=== PATIENT | male | born 1940 | race Caucasian/White ===

== ENCOUNTER 2016-05-08 11:19 | Inpatient (IN) | payer MEDICARE ==
[~2016-05-08] VITALS: Ht 175.3 cm; Wt 87.2 kg
[~2016-05-08 11:19] MED LIST: CEFU1TAB43 PO; CIAL2.5T OR; DUONI NEB; MEDR4PAK3 PO; SAW500CA6 PO; TAB-TAB PO; ZITH250T PO
[2016-05-08 11:25] VITALS: BP 141/78; PULSE 68; RESP 16; O2SAT 96
[2016-05-08] MEDS ORDERED: ONDANSETRON HCL 4 MG/2 ML VIAL IV PUSH ONE (11:30)
[2016-05-08] MEDS ORDERED: HYDROmorphone HCL PF 1 MG/ML VIAL IV PUSH ONE (11:30)
[2016-05-08 11:38] VITALS: BP 139/95; PULSE 73; RESP 18; TEMP 97.8; O2SAT 98
[2016-05-08 11:56] LABS: AUTOMATED NEUTROPHIL # 5.9 TH/MM3 (1.8-7.7); BASOPHIL % 0.5 % (0.0-2.0); EOSINOPHIL % 0.2 % (0.0-4.0); HEMATOCRIT 48.5 % (39.0-51.0); HEMO FLAGS DIFF FINAL; LYMPH % 15.6 % (9.0-44.0); LYMPHOCYTE # 1.3 TH/MM3 (1.0-4.8); MEAN CELL VOLUME 94.8 FL (80.0-100.0); MEAN CORPUSCULAR HEMOGLOBIN 32.1 PG (27.0-34.0); MEAN CORPUSCULAR HGB CONC 33.9 % (32.0-36.0); MONO % 10.4 % (0.0-8.0); NEUT % 73.3 % (16.0-70.0); PLATELET COUNT 209 TH/MM3 (150-450); RED BLOOD COUNT 5.12 MIL/MM3 (4.50-5.90); RED CELL DISTRIBUTION WIDTH 13.9 % (11.6-17.2); WHITE BLOOD COUNT 8.1 TH/MM3 (4.0-11.0)
[2016-05-08] MEDS ORDERED: PROPOFOL 500 MG/50 ML BTL IV ONE (12:00)
[2016-05-08 12:06] LABS: PROTHROMBIN TIME - PATIENT 11.6 SEC (9.8-11.6)
[2016-05-08 12:07] LABS: APTT (PATIENT) 28.2 SEC (24.3-30.1)
[2016-05-08 12:10] VITALS: O2SAT 99
[2016-05-08 12:24] LABS: BICARBONATE 20.7 MEQ/L (21.0-32.0); MAGNESIUM 1.9 MG/DL (1.5-2.5); POTASSIUM 3.6 MEQ/L (3.5-5.1)
[2016-05-08] MEDS ORDERED: SODIUM CHLORIDE 0.9% FLUSH 5 ML FLUSH FLUSH PRN (14:00)
[2016-05-08] MEDS ORDERED: MORPHINE SULFATE 4 MG/ML INJ IV PUSH PRN (14:00)
[2016-05-08] MEDS ORDERED: HYDROmorphone HCL PF 1 MG/ML VIAL IV PUSH PRN (14:00)
[2016-05-08] MEDS ORDERED: NALOXONE HCL 0.4 MG/ML AMP IV PRN (14:00)
[2016-05-08] MEDS ORDERED: ONDANSETRON HCL 4 MG/2 ML VIAL IVP PRN (14:00)
[2016-05-08] MEDS ORDERED: ACETAMINOPHEN 325 MG TAB PO PRN (14:00)
--- NOTE | 2016-05-08 14:10 | RADRPT ---
EXAM DATE/TIME: 05/08/2016 13:26 [place] COMPARISON: CHEST SINGLE AP, August 14, 2012, 17:37. INDICATIONS : Shortness of breath. Inguinal Hernia. MEDICAL HISTORY : Chronic obstructive pulmonary disease. Carcinoma, lung. 10/2015 Lung CA. SURGICAL HISTORY : None. ENCOUNTER: Initial ACUITY: 1 day PAIN SCORE: 0/10 LOCATION: Bilateral chest . FINDINGS: There is a somewhat ill-defined horizontal left basilar 1-1/2 cm elongated linear area of density whi ch has occurred in the interim. There is a history of lung cancer with no interim imaging. This may r epresent scarring. Correlation with prior chest and/or CT scans in the interim relative to August 2012 w ould resolve this issue. CONCLUSION: Horizontal ill-defined 1-1/2 cm area of linear density in the left lung base indeterminate chronicity . Phu Velasquez MD on May 08, 2016 at 14:06 Board Certified Radiologist. This report was verified electronically.
--- NOTE | 2016-05-08 14:17 | PD ---
HPI Chief Complaint: Lump, Cyst, Hernia Time Seen by Provider: 11:32 Travel History International Travel<30 days: No Contact w/Intl Traveler<30days: No Traveled to known affect area: No History of Present Illness HPI 76-year-old male presents with right lower quadrant abdominal pain associated with a hernia which will not reduce since this morning. He was sent by ambulance from his surgeons office for incarceration. The patient states he had an episode in March when he had to go to [place] for them to reduce it but today's was worse. He denies other concurrent complaints. Quality pain is sharp. Severity is moderate. Pain is worse with movement. Dr. Weeks is who he saw in the office and he has not had surgery there yet. His is at bedside. PFSH Past Medical History AAA: Yes (STENT REPAIR) Cancer: No Cardiovascular Problems: No COPD: Yes (uses oxygen at night) Diminished Hearing: Yes Endocrine: No Genitourinary: No Immune Disorder: No Implanted Vascular Access Dvce: Yes Musculoskeletal: No Neurologic: Yes Psychiatric: No Reproductive: No Respiratory: Yes Pneumonia: Yes Past Surgical History Abdominal Aneurysm Repair: Yes (STENT) Abdominal Surgery: Yes (BOWEL REPAIR) Eye Surgery: Yes (SAVANAH. CATARACT EXTRACT.) Other Surgery: Yes Social History Alcohol Use: Yes Tobacco Use: No (QUIT 6 MONTHS PRIOR) Substance Use: No Allergies-Medications (Allergen,Severity, Reaction): Coded Allergies: No Known Allergies (Unverified , 08/14/12) Reported Meds & Prescriptions Reported Meds & Active Scripts Active Zithromax Z-Oscar (Azithromycin) 250 Mg Tab 250 Mg PO DIRECTED 500 MG (2 TABLETS) PO ON DAY 1, THEN 250 MG (1 TABLET) PO ON DAYS 2 TO 5. Ceftin 500 Mg Tab (Cefuroxime Axetil) 500 Mg Tab 500 Mg PO BID Medrol Dosepak (Methylprednisolone) 4 Mg Oscar 4 Mg PO DIRECTED TAKE DIRECTED Resp: Albuterol/Ipratropium 2.5 Mg/0.5 Mg (Albuterol/Ipratropium) 1 Amp Nebu 1 Amp NEB Q6H 10 Days Reported Cialis (Tadalafil) 2.5 Mg Tab 0 OR Saw [place] 500 Mg Cap 500 Mg PO BID Multivitamin (Multivitamins) 1 Tab Tab 1 Tab PO DAILY Review of Systems Except as stated in HPI: all other systems reviewed are Neg Physical Exam Narrative GENERAL: Well-nourished, well-developed patient. SKIN: Warm and dry. HEAD: Normocephalic and atraumatic. EYES: No injection or drainage. ENT: No nasal drainage noted. NECK: Supple, trachea midline. CARDIOVASCULAR: Regular rate and rhythm RESPIRATORY: No increased effort. No accessory muscle use. GASTROINTESTINAL: Abdomen soft, tender right lower abdomen with incarcerated right inguinal hernia with significant swelling and purple discoloration noted, nondistended. NEUROLOGICAL: Awake and alert. Moves all extremities. Normal speech. Data Data Last Documented VS Vital Signs Date Time Temp Pulse Resp B/P Pulse Ox O2 Delivery O2 Flow Rate FiO2 05/08/16 12:10 99 05/08/16 11:38 97.8 73 18 139/95 Room Air Orders Electrocardiogram (05/08/16 11:30) Complete Blood Count With Diff (05/08/16 11:30) Basic Metabolic Panel (Bmp) (05/08/16 11:30) Prothrombin Time / Inr (Pt) (05/08/16 11:30) Act Partial Throm Time (Ptt) (05/08/16 11:30) Urinalysis - C+S If Indicated (05/08/16 11:30) Magnesium (Mg) (05/08/16 11:30) Chest, Single Ap (05/08/16 11:30) Iv Access Insert/Monitor (05/08/16 11:30) Ecg Monitoring (05/08/16 11:30) Oximetry (05/08/16 11:30) Hydromorphone Pf Inj (Dilaudid Pf Inj) (05/08/16 11:30) Ondansetron Inj (Zofran Inj) (05/08/16 11:30) Propofol 500 Mg/50 Ml Inj (Diprivan 500 (05/08/16 12:00) Admit Order (Ed Use Only) (05/08/16 12:33) Labs Laboratory Tests Test 05/08/16 11:40 White Blood Count 8.1 TH/MM3 Red Blood Count 5.12 MIL/MM3 Hemoglobin 16.4 GM/DL Hematocrit 48.5 % Mean Corpuscular Volume 94.8 FL Mean Corpuscular Hemoglobin 32.1 PG Mean Corpuscular Hemoglobin 33.9 % Concent Red Cell Distribution Width 13.9 % Platelet Count 209 TH/MM3 Mean Platelet Volume 8.1 FL Neutrophils (%) (Auto) 73.3 % Lymphocytes (%) (Auto) 15.6 % Monocytes (%) (Auto) 10.4 % Eosinophils (%) (Auto) 0.2 % Basophils (%) (Auto) 0.5 % Neutrophils # (Auto) 5.9 TH/MM3 Lymphocytes # (Auto) 1.3 TH/MM3 Monocytes # (Auto) 0.8 TH/MM3 Eosinophils # (Auto) 0.0 TH/MM3 Basophils # (Auto) 0.0 TH/MM3 CBC Comment DIFF FINAL Differential Comment Prothrombin Time 11.6 SEC Prothromb Time International 1.0 RATIO Ratio Activated Partial 28.2 SEC Thromboplast Time Sodium Level 139 MEQ/L Potassium Level 3.6 MEQ/L Chloride Level 103 MEQ/L Carbon Dioxide Level 20.7 MEQ/L Anion Gap 15 MEQ/L Blood Urea Nitrogen 9 MG/DL Creatinine 0.98 MG/DL Estimat Glomerular Filtration 74 ML/MIN Rate Random Glucose 159 MG/DL Calcium Level 9.4 MG/DL Magnesium Level 1.9 MG/DL MDM Medical Decision Making Medical Screen Exam Complete: Yes Emergency Medical Condition: Yes Medical Record Reviewed: Yes (past history confirmed) Interpretation(s) CBC & BMP Diagram 05/08/16 11:40 Differential Diagnosis Hernia, obstruction, mass Narrative Course Patient arrived with incarcerated hernia. Gave order for morphine in route with the ambulance team. When he arrived here he was given Dilaudid. Surgeon was notified of arrival and arrived at bedside and procedural sedation was agreed upon and patient consented with time out. Sedation was achieved with propofol. Patient will be admitted to the hospital for surgical repair after successful reduction in the emergency department. He will need surgical clearance before surgery. Procedures Procedure Narrative After the risks and benefits were discussed the following procedure was performed: MODERATE SEDATION: The patient was placed on a clinical research monitor and pulse oximetry. An ambu bag and suction was immediately available at bedside. The patient was monitored by the nurse and respiratory therapy. Oxygen saturation, heart rate and blood pressure were monitored. Procedural sedation was acheived using 12 mL's of propofol. Procedural Sedation time in attendance was 15 minutes as patient had brief desaturation after procedure was complete where I personally performed bag valve mask to keep his saturations adequate. The patient was observed until awake and alert. updated at end of procedure, patient felt improved after procedure Physician Communication Physician Communication Dr. Weeks will come to bedside Dr. Weeks states after reduction to consult him and he already discussed with Dr. Daugherty for admission, he will need cardiac and surgical clearance before surgery in the hospital Diagnosis Primary Impression: Incarcerated hernia Admitting Information Admitting Physician Requests: Admit Tram Oliva MD May 08, 2016 14:17
[2016-05-08] MEDS: SODIUM CHLOR 0.45% 1000 ML INJ 1,000 ML IV SCH (14:49)
[2016-05-08 15:01] VITALS: O2SAT 93
[2016-05-08 17:22] LABS: BLOOD, URINE NEG (NEG); COMMENT (UR) CULT NOT INDICATED; CULTURE IF INDICATED CULT NOT INDICATED; GLUCOSE,URINE NEG (NEG); KETONE, URINE 10 mg/dL (NEG); MUCUS URINE FEW /lpf (OCC); NITRITE,URINE NEG (NEG); PH, URINE 5.5 (5.0-8.5); URINE COLOR YELLOW (YELLW/STRAW)
--- NOTE | 2016-05-08 18:14 | HHI.HP ---
[facility] Primary Care Physician Cat Ferguson MD Admission Diagnosis hernia Diagnoses: Chief Complaint: Right lower quadrant abdominal- incarcerated hernia Travel History International Travel<30 Days: No Contact w/Intl Traveler <30 Da: No Traveled to Known Affected Are: No History of Present Illness This very pleasant 76-year-old male patient with past medical history which includes AAA status post repair, COPD worse 2 L nasal oxygen via nasal cannula at night, lung cancer status post robotic resection hard of hearing and macular degeneration. Patient reports that he's had a right inguinal hernia for about the past year. Patient did go to the emergency department physician while 04/06 which he required conscious sedation and reduction of hernia. Patient reports he woke up this morning with severe sharp right lower quadrant pain. Pain is associated with nausea. Patient reports he is occasionally able to reduce the hernia himself but was unable to therefore proceeded to his scheduled appointment with Dr. Fernandes at that time he was instructed to come to the emergency department for further evaluation and treatment. On arrival to the emergency department patient was found to have incarcerated right hernia which was partially reduced with conscious sedation by Dr. Weeks. Patient reports the pain has normal way and he feels much better at this time. Dr. Weeks plans to take patient to the operating room for hernia repair first with like cardiac and medical clearance preoperative clearance. Patient denies chest pain shortness of breath fevers or chills. Patient does report he has had intermittent difficulties with constipation for which she's been taking [id number] stool softeners. Review of Systems Other All other systems reviewed and negative except as mentioned in history of present illness. Past Family Social History Past Medical History AAA status post repair, COPD worse 2 L nasal oxygen via nasal cannula at night, lung cancer status post robotic resection hard of hearing and macular degeneration Past Surgical History AAA repair with stent, abdominal hernia repair, bilateral cataract surgery, robotic lung cancer resection left side Reported Medications Cialis (Tadalafil) 2.5 Mg Tab Saw [place] 500 Mg Cap 500 Mg PO BID Multivitamin (Multivitamins) 1 Tab Tab 1 Tab PO DAILY Allergies: Coded Allergies: No Known Allergies (Unverified , 08/14/12) Active Ordered Medications Current Medications Medications (Trade) Dose Ordered Sig/Daniel Route Start Time Stop Time Status Last Admin (04/15 NS 1000 ml Inj) 1,000 ml @ 75 mls/hr [id number] IV 05/08/16 13:53 05/08/16 14:49 (NS Flush) 2 ml UNSCH PRN FLUSH 05/08/16 14:00 (NS Flush) 2 ml BID FLUSH 05/08/16 21:00 (Tylenol) 650 mg Q4H PRN PO 05/08/16 14:00 (Zofran Inj) 4 mg Q6H PRN IVP 05/08/16 14:00 (Narcan Inj) 0.4 mg UNSCH PRN IV 05/08/16 14:00 (Morphine Inj) 2 mg Q3H PRN IV PUSH 05/08/16 14:00 (Dilaudid Pf Inj) 1 mg Q4H PRN IV PUSH 05/08/16 14:00 Family History Father secondary to NM also had prostate cancer Mother also had diabetes heart disease and CVA Social History Patient reports he drinks proximally 2 alcoholic drinks per day Quit smoking 10-12 years ago prior to that had a [id number] history 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 SKIN: No rashes, ecchymoses or lesions. Cool and dry. HEAD: Atraumatic. Normocephalic. No temporal or scalp tenderness. EYES: Extraocular motions intact. No scleral icterus. No injection or drainage. ENT: Nose without bleeding, purulent drainage or septal hematoma. Throat without erythema, tonsillar hypertrophy or exudate. Uvula midline. Airway patent. NECK: Trachea midline. No JVD or lymphadenopathy. Supple, nontender, no meningeal signs. CARDIOVASCULAR: Regular rate and rhythm without murmurs, gallops, or rubs. RESPIRATORY: Clear to auscultation. Breath sounds equal bilaterally. No wheezes , rales, or rhonchi. GASTROINTESTINAL: Abdomen soft, non-tender, nondistended. Right inguinal hernia partially reduced soft MUSCULOSKELETAL: Extremities without clubbing, cyanosis, or edema. No joint tenderness, effusion, or edema noted. No calf tenderness. Negative Homans sign bilaterally. NEUROLOGICAL: Awake and alert. No focal deficits appreciated Motor and sensory grossly within normal limits. Five out of 5 muscle strength in all muscle groups. Normal speech. Laboratory Laboratory Tests Test 05/08/16 05/08/16 11:40 16:35 White Blood Count 8.1 Red Blood Count 5.12 Hemoglobin 16.4 Hematocrit 48.5 Mean Corpuscular Volume 94.8 Mean Corpuscular Hemoglobin 32.1 Mean Corpuscular Hemoglobin 33.9 Concent Red Cell Distribution Width 13.9 Platelet Count 209 Mean Platelet Volume 8.1 Neutrophils (%) (Auto) 73.3 Lymphocytes (%) (Auto) 15.6 Monocytes (%) (Auto) 10.4 Eosinophils (%) (Auto) 0.2 Basophils (%) (Auto) 0.5 Neutrophils # (Auto) 5.9 Lymphocytes # (Auto) 1.3 Monocytes # (Auto) 0.8 Eosinophils # (Auto) 0.0 Basophils # (Auto) 0.0 CBC Comment DIFF FINAL Differential Comment Prothrombin Time 11.6 Prothromb Time International 1.0 Ratio Activated Partial 28.2 Thromboplast Time Sodium Level 139 Potassium Level 3.6 Chloride Level 103 Carbon Dioxide Level 20.7 Anion Gap 15 Blood Urea Nitrogen 9 Creatinine 0.98 Estimat Glomerular Filtration 74 Rate Random Glucose 159 Calcium Level 9.4 Magnesium Level 1.9 Urine Color YELLOW Urine Turbidity CLEAR Urine pH 5.5 Urine Specific [place] 1.016 Urine Protein NEG Urine Glucose (UA) NEG Urine Ketones 10 Urine Occult Blood NEG Urine Nitrite NEG Urine Bilirubin NEG Urine Urobilinogen LESS THAN 2.0 Urine Leukocyte Esterase NEG Urine WBC 3 Urine Mucus FEW Microscopic Urinalysis Comment CULT NOT INDICATED Result Diagram: 05/08/16 1140 05/08/16 1140 Imaging Last Impressions Chest X-Ray 05/08/16 1130 Signed Impressions: Service Date/Time: Sunday, May 08, 2016 13:26 - CONCLUSION: Horizontal ill-defined 1-1/2 cm area of linear density in the left lung base indeterminate chronicity. Phu Velasquez MD Assessment and Plan Assessment and Plan This very pleasant 76-year-old male patient with past medical history which includes AAA status post repair, COPD worse 2 L nasal oxygen via nasal cannula at night, lung cancer status post robotic resection hard of hearing and macular degeneration. Patient reports that he's had a right inguinal hernia for about the past year. On arrival to the emergency department patient was found to have incarcerated right hernia which was partially reduced with conscious sedation by Dr. Weeks. Dr. Weeks plans to take patient to the operating room for hernia repair first with like cardiac and medical clearance preoperative clearance. Incarcerated hernia Right lower quadrant abdominal pain Hernia reduced with conscious sedation by Dr. Weeks Plans per General surgery regarding timing of repair. Dr. Weeks requesting cardiac and medical clearance preoperatively Cardiology consulted for preoperative clearance Patient nothing by mouth at this time Normal saline at 75 cc/h COPD oxygen via nasal cannula to maintain oxygen saturation above 90% Duo nebs as needed Lung cancer status post resection follow-up with Dr. Pradhan as outpatient DVT prophylaxis with SCDs Discussed plan of care with patient and family member at bedside Also discussed with the ER provider and RN Written by Regina Kimbrough, acting as scribe for Dr. Daugherty on 05/08/16 at 18:14. The documentation accurately reflects the work performed [id number] by me on 05/08/16 at 1814. Discussed Condition With Dr. Oliva and Dr. Weeks Physician Certification 2 Midnight Certification Type: Admission for Inpatient Services Order for Inpatient Services The services are ordered in accordance with Medicare regulations or non- Medicare payer requirements, as applicable. In the case of services not specified as inpatient-only, they are appropriately provided as inpatient services in accordance with the 2-midnight benchmark. Estimated LOS (days): 3 days is the estimated time the patient will need to remain in the hospital, assuming treatment plan goals are met and no additional complications. Post-Hospital Plan: Home Regina Kimbrough May 08, 2016 18:14 Chad Daugherty MD May 08, 2016 21:38
[2016-05-08] MEDS ORDERED: RESP: ALBUTEROL 2.5 MG/IPRATROPIUM 0.5 MG NEB (PRN) NEB (18:15)
--- NOTE | 2016-05-08 19:23 | MB ---
cc: FIOR VALERIO MD DATE OF CONSULTATION 05/08/2016 REASON FOR CONSULTATION Incarcerated right inguinal hernia. HISTORY OF PRESENT ILLNESS The patient is a 76-year-old male with of multiple medical issues who presented initially in the vascular surgery office for evaluation of triple aortic aneurysm which had previously been repaired. The patient was undergoing a routine visit with notes of findings of a right inguinal hernia incarceration. The patient had significant nausea and vomiting that started in the morning. He also complained of significant pain. This was discussed with surgery in the office and given the patient's acute symptoms and concern for irreducible inguinal hernia he was sent to the emergency department for further evaluation. On my evaluation in the emergency department again the patient noted that he had history of a hernia since approximately 2014 and he states that it intermittently protrudes and spontaneously reduces. He has had several episodes in the past for which he has had an incarcerated hernia for which reduction was not possible at home, therefore most recently he came to the emergency department in March due to incarcerated hernia where he underwent reduction by the physician and told to followup. The patient complains of recurrent symptoms including nausea, vomiting and groin pain. He states the pain is a 10/10, it radiates to the right side of his abdomen and down to the groin. It is sharp. Again he has had pain like this previously multiple times and is not improved. It is worse with movement and better with lying still. Although the patient states he cannot lie flat. PAST MEDICAL HISTORY 1. COPD. 2. Aortic aneurysm. 3. Hearing impairment. 4. Pneumonia. PAST SURGICAL HISTORY 1. Triple abdominal aortic aneurysm repair with a graft endovascularly. 2. Bowel repair. 3. Bilateral cataract surgery. SOCIAL HISTORY occasional ethyl alcohol. Denies current smoking, however does have a history of smoking in the past. Denies IVDA. ALLERGIES The patient has no known drug allergies. MEDICATIONS See EMR. FAMILY HISTORY Denies diabetes, hypertension. REVIEW OF SYSTEMS GENERAL: The patient complained of significant groin pain. HEENT: Denies eye pain, ear pain. Does complain of decreased visual acuity. NECK: Denies adenopathy, swelling. RESPIRATORY: Denies cough. Does have COPD. CARDIOVASCULAR: Denies palpitations or chest pain. ABDOMEN: Complained of abdominal pain, groin pain. ENDOCRINE: Denies polyuria, polydipsia. NEUROLOGICAL: Complained of some numbness. Denies change in sensorium. GENITOURINARY: Complained of groin pain. Denies dysuria. PHYSICAL EXAMINATION GENERAL: The patient no acute distress. HEENT: PERRLA, EOMI. NECK: Supple. Trachea midline. CARDIOVASCULAR: Heart S1-S2. No murmur. LUNGS: Bilateral expansion, no wheeze. ABDOMEN: Soft, nontender, nondistended. Right groin mass noted. Positive tenderness to palpation, irreducible on plain Physical examination. NEUROLOGICAL: GCS of 15. Alert and oriented times four. GENITOURINARY: Within normal limits with exception of right groin hernia. PSYCHIATRIC: Good insight, good judgment. VITAL SIGNS: Pulse 73, respiratory rate 18, blood pressure 139/95. Pulse oximetry 99%. LABORATORY DATA CBC, white blood cell 8.1, hemoglobin 16.4, hematocrit 48.5, platelets 209. PT 11.6. INR 1.0. Sodium 139, potassium 3.6, chloride 103, CO2 is 20, creatinine is 0.98. Glucose 159. ASSESSMENT Procedure, the patient underwent conscious sedation with manual reduction of hernia. PLAN After full clinical and radiologic workup the patient with incarcerated abdominal groin hernia. Given the fact that patient has had multiple recurrences, the patient _lives_ with a significant distance from the hospital, the patient has had somewhat poor compliance. The patient is with concern of recurrence of hernia. Further concern that the patient had incarcerated small bowel within the hernia and significant tenderness given this fact of duration of hernia protrusion, the patient will warrant admission for abdominal exams and repeat labs in the morning. If the patient's labs are increased significantly or concern, he may warrant a CT scan or diagnostic laparoscopy for further evaluation. Further during conscious sedation procedure the patient with a history of chronic obstructive pulmonary disease and did have some desaturations during this time. Further I think it would be prudent for observation and further pulmonary and cardiac workup. We will consider possibly repair of hernia ending further workup and evaluation. This was discussed in detail with the patient and the at the bedside and the nursing staff. They state understanding of this. Thank you for the consultation. MD MANPREET King/DIONICIO /5:04 PM /6:40 PM [id number]
[2016-05-08 20:31] VITALS: BP 110/70; PULSE 70; RESP 18; TEMP 98.4; O2SAT 98
[2016-05-08] MEDS: SODIUM CHLORIDE 0.9% FLUSH 5 ML FLUSH FLUSH SCH (20:35)
[2016-05-09] VITALS (8 sets, daily range): BP systolic 98–114; BP diastolic 66–78; PULSE 69–81; RESP 18; TEMP 96.6–98.4; O2SAT 91–98
[2016-05-09] MEDS: SODIUM CHLOR 0.45% 1000 ML INJ 1,000 ML IV SCH (03:13)
[2016-05-09 07:41] LABS: AUTOMATED NEUTROPHIL # 4.3 TH/MM3 (1.8-7.7); BASOPHIL % 0.3 % (0.0-2.0); EOSINOPHIL # 0.2 TH/MM3 (0-0.4); EOSINOPHIL % 2.6 % (0.0-4.0); HEMATOCRIT 42.7 % (39.0-51.0); HEMO FLAGS DIFF FINAL; LYMPH % 26.5 % (9.0-44.0); MEAN CELL VOLUME 95.6 FL (80.0-100.0); MEAN CORPUSCULAR HEMOGLOBIN 31.8 PG (27.0-34.0); MEAN CORPUSCULAR HGB CONC 33.3 % (32.0-36.0); MONO % 12.9 % (0.0-8.0); NEUT % 57.7 % (16.0-70.0); PLATELET COUNT 162 TH/MM3 (150-450); RED BLOOD COUNT 4.47 MIL/MM3 (4.50-5.90); RED CELL DISTRIBUTION WIDTH 14.5 % (11.6-17.2); WHITE BLOOD COUNT 7.5 TH/MM3 (4.0-11.0)
[2016-05-09 08:14] LABS: BICARBONATE 27.6 MEQ/L (21.0-32.0); POTASSIUM 3.5 MEQ/L (3.5-5.1)
[2016-05-09] MEDS: SODIUM CHLORIDE 0.9% FLUSH 5 ML FLUSH FLUSH SCH (08:35)
--- NOTE | 2016-05-09 11:07 | PD.CONS ---
HPI Service Cardiology Physicians Consult Requested By LUIS ALBERTO Kimbrough Reason for Consult Preoperative clearance Primary Care Physician Cat Ferguson MD History of Present Illness The patient is a 76 year old male with a cardiac history of AAA repair followed by Dr. Fernandes, abnormal EKG with unremarkable cardiac stress test 2014 and history tobacco abuse. Other notable history is O2 dependent COPD and history of lung resection for lung cancer. He presented to the ER for non-reducible hernia. Hernia was reduced with conscious sedation and he is pending surgery. The patient denies new cardiac symptoms. He denies recent CP, increased SOB, lower extremity edema or heart palpitations. He quit smoking 10 year ago. He can climb one flight of stairs. (Sandrine Mcdonald) Review of Systems Consitutional: DENIES: Fatigue, Fever, Chills, Weight gain, Weight loss Eyes: DENIES: Amaurosis Fugax, Change in vision HEENT: DENIES: Lightheadedness, Change in hearing Respiratory: COMPLAINS OF: Shortness of breath, DENIES: See HPI, Cough, Snoring, Wheezing, Sputum production Cardiovascular: DENIES: See HPI, Chest pain, Palpitations, Syncope, Tachycardia Gastrointestinal: DENIES: Nausea, Vomiting, Change in bowel habits, Reflux, Bloody stools, Melena Genitourinary: DENIES: Urinary incontinence, Difficulty voiding Integumentary: DENIES: Rash Neurologic: DENIES: Tingling or numbness, Memory problems, Poor Balance, Stroke symptoms Musculoskeletal: DENIES: Joint pain, Muscle pain, Limited range of motion, Back pain Psychiatric: DENIES: Anxiety, Depression, Sleep disturbances Hematologic: DENIES: Bruising tendencies, Bleeding tendencies Endocrine: DENIES: Weight gain, Weight loss, Thyroid disease (Sandrine Mcdonald ) Past Family Social History Allergies: Coded Allergies: No Known Allergies (Unverified , 08/14/12) Past Medical History See HPI Past Surgical History Lung resection AAA repair Reported Medications Reviewed Active Ordered Medications Current Medications Medications (Trade) Dose Ordered Sig/Daniel Route Start Time Stop Time Status Last Admin (04/15 NS 1000 ml Inj) 1,000 ml @ 75 mls/hr [id number] IV 05/08/16 13:53 05/09/16 03:13 (NS Flush) 2 ml UNSCH PRN FLUSH 05/08/16 14:00 (NS Flush) 2 ml BID FLUSH 05/08/16 21:00 (Tylenol) 650 mg Q4H PRN PO 05/08/16 14:00 (Zofran Inj) 4 mg Q6H PRN IVP 05/08/16 14:00 (Narcan Inj) 0.4 mg UNSCH PRN IV 05/08/16 14:00 (Morphine Inj) 2 mg Q3H PRN IV PUSH 05/08/16 14:00 (Dilaudid Pf Inj) 1 mg Q4H PRN IV PUSH 05/08/16 14:00 Family History non contributory Social History lives with his , quit smoking 10 year ago (Sandrine Mcdonald) Physical Exam Vital Signs Vital Signs Date Time Temp Pulse Resp B/P Pulse Ox O2 Delivery O2 Flow Rate FiO2 05/09/16 10:37 69 05/09/16 08:00 97.0 75 18 104/67 94 05/09/16 04:36 98.1 72 18 114/66 98 05/09/16 03:50 79 05/09/16 00:26 98.4 78 18 98/67 96 05/08/16 20:31 98.4 70 18 110/70 98 05/08/16 15:01 93 Nasal Cannula 2 05/08/16 15:01 93 Nasal Cannula 2.00 05/08/16 12:10 99 05/08/16 11:38 97.8 73 18 139/95 98 Room Air 05/08/16 11:25 68 16 141/78 96 Physical Exam GENERAL: laying flat in bed, no distress SKIN: Warm and dry. HEAD: Atraumatic. Normocephalic. EYES: Pupils equal and round. No scleral icterus. No injection or drainage. ENT: No nasal bleeding or discharge. Mucous membranes pink and moist. NECK: Trachea midline. CARDIOVASCULAR: Regular rate and rhythm. RESPIRATORY: No accessory muscle use. Clear to auscultation. Breath sounds equal bilaterally. nasal cannula, bilateral fine rales GASTROINTESTINAL: Hernia MUSCULOSKELETAL: Extremities without clubbing, cyanosis, or edema. No obvious deformities. NEUROLOGICAL: Awake and alert. No obvious cranial nerve deficits. Motor grossly within normal limits. Five out of 5 muscle strength in the arms and legs. Normal speech. PSYCHIATRIC: Appropriate mood and affect; insight and judgment normal. Laboratory Laboratory Tests Test 05/08/16 05/08/16 05/09/16 11:40 16:35 06:59 White Blood Count 8.1 7.5 Red Blood Count 5.12 4.47 Hemoglobin 16.4 14.2 Hematocrit 48.5 42.7 Mean Corpuscular Volume 94.8 95.6 Mean Corpuscular Hemoglobin 32.1 31.8 Mean Corpuscular Hemoglobin 33.9 33.3 Concent Red Cell Distribution Width 13.9 14.5 Platelet Count 209 162 Mean Platelet Volume 8.1 7.9 Neutrophils (%) (Auto) 73.3 57.7 Lymphocytes (%) (Auto) 15.6 26.5 Monocytes (%) (Auto) 10.4 12.9 Eosinophils (%) (Auto) 0.2 2.6 Basophils (%) (Auto) 0.5 0.3 Neutrophils # (Auto) 5.9 4.3 Lymphocytes # (Auto) 1.3 2.0 Monocytes # (Auto) 0.8 1.0 Eosinophils # (Auto) 0.0 0.2 Basophils # (Auto) 0.0 0.0 CBC Comment DIFF FINAL DIFF FINAL Differential Comment Prothrombin Time 11.6 Prothromb Time International 1.0 Ratio Activated Partial 28.2 Thromboplast Time Sodium Level 139 142 Potassium Level 3.6 3.5 Chloride Level 103 107 Carbon Dioxide Level 20.7 27.6 Anion Gap 15 7 Blood Urea Nitrogen 9 8 Creatinine 0.98 0.90 Estimat Glomerular Filtration 74 82 Rate Random Glucose 159 97 Calcium Level 9.4 8.2 Magnesium Level 1.9 Urine Color YELLOW Urine Turbidity CLEAR Urine pH 5.5 Urine Specific [place] 1.016 Urine Protein NEG Urine Glucose (UA) NEG Urine Ketones 10 Urine Occult Blood NEG Urine Nitrite NEG Urine Bilirubin NEG Urine Urobilinogen LESS THAN 2.0 Urine Leukocyte Esterase NEG Urine WBC 3 Urine Mucus FEW Microscopic Urinalysis Comment CULT NOT INDICATED (Sandrine Mcdonald) Result Diagram: 05/09/16 0659 05/09/16 0659 Imaging Last 72 hours Impressions Chest X-Ray 05/08/16 1130 Signed Impressions: Service Date/Time: Sunday, May 08, 2016 13:26 - CONCLUSION: Horizontal ill-defined 1-1/2 cm area of linear density in the left lung base indeterminate chronicity. Phu Velasquez MD (Sandrine Mcdonald) Assessment and Plan Assessment and Plan ASSESSMENT Incarcerated hernia- pending surgery AAA s/p repair Abnormal EKG- negative nuclear stress test 09/2014 Former smoker Hx lung resection Abnormal CXR PLAN The patient is clear for hernia repair from a cardiac standpoint at intermediate risk. We will follow up after surgery Patient seen and evaluated by Dr Bermudez (Sandrine Mcdonald) Assessment and Plan The exam, history, and the medical decision-making described in the above note were completed with the assistance of the mid-level provider. I reviewed and agree with the findings presented. I attest that I had a [id number] encounter with the patient on the same day, and personally performed and documented my assessment and findings in the medical record. Stable cardiac status no cp or sob doing well post hernia repair ok to d/c (Shaquille Bermudez MD) Sadnrine Mcdonald May 09, 2016 11:06 Shaquille Bermudez MD May 10, 2016 15:03
[2016-05-09] MEDS ORDERED: ePHEDrine/NS 25 MG/5 ML SYR IV ONE (12:00)
[2016-05-09] MEDS ORDERED: ONDANSETRON HCL 4 MG/2 ML VIAL IV PUSH ONE (12:00)
[2016-05-09] MEDS ORDERED: NEOSTIGMINE 3 MG/3 ML SYR IV ONE (12:00)
[2016-05-09] MEDS ORDERED: ceFAZolin 2 GM/50 ML BAG IV ONE (12:00)
[2016-05-09] MEDS ORDERED: PHENYLEPH/NS 1000 MCG/10 ML SYR IV ONE (12:00)
[2016-05-09] MEDS ORDERED: PROPOFOL 200 MG/20 ML AMP IV ONE (12:00)
--- NOTE | 2016-05-09 14:03 | HHI.PR ---
Subjective Subjective Notes DAILY PROGRESS NOTE FOR SURGICAL ATTENDING, DR. DWAIN NORTH Patient feels a lot better after his hernia was reduced Asking about when his hernias had to be repaired with his in the room Cardiology has cleared the patient Objective Vitals/I&O Vital Signs Date Time Temp Pulse Resp B/P Pulse Ox O2 Delivery O2 Flow Rate FiO2 05/09/16 12:00 97.5 80 18 109/73 93 05/08/16 15:01 Nasal Cannula 2 Labs Laboratory Tests Test 05/08/16 05/09/16 16:35 06:59 Urine Color YELLOW Urine Turbidity CLEAR Urine pH 5.5 Urine Specific [place] 1.016 Urine Protein NEG Urine Glucose (UA) NEG Urine Ketones 10 Urine Occult Blood NEG Urine Nitrite NEG Urine Bilirubin NEG Urine Urobilinogen LESS THAN 2.0 Urine Leukocyte Esterase NEG Urine WBC 3 Urine Mucus FEW Microscopic Urinalysis Comment CULT NOT INDICATED White Blood Count 7.5 Red Blood Count 4.47 Hemoglobin 14.2 Hematocrit 42.7 Mean Corpuscular Volume 95.6 Mean Corpuscular Hemoglobin 31.8 Mean Corpuscular Hemoglobin 33.3 Concent Red Cell Distribution Width 14.5 Platelet Count 162 Mean Platelet Volume 7.9 Neutrophils (%) (Auto) 57.7 Lymphocytes (%) (Auto) 26.5 Monocytes (%) (Auto) 12.9 Eosinophils (%) (Auto) 2.6 Basophils (%) (Auto) 0.3 Neutrophils # (Auto) 4.3 Lymphocytes # (Auto) 2.0 Monocytes # (Auto) 1.0 Eosinophils # (Auto) 0.2 Basophils # (Auto) 0.0 CBC Comment DIFF FINAL Differential Comment Sodium Level 142 Potassium Level 3.5 Chloride Level 107 Carbon Dioxide Level 27.6 Anion Gap 7 Blood Urea Nitrogen 8 Creatinine 0.90 Estimat Glomerular Filtration 82 Rate Random Glucose 97 Calcium Level 8.2 Radiology Last Impressions Chest X-Ray 05/08/16 1130 Signed Impressions: Service Date/Time: Sunday, May 08, 2016 13:26 - CONCLUSION: Horizontal ill-defined 1-1/2 cm area of linear density in the left lung base indeterminate chronicity. Phu Vleasquez MD Cardiovascular: Regular Lungs: Clear, Upper airway course sound Abdomen: Non-distended, Non-tender Extremities: No edema Narrative Exam Right inguinal hernia reducible moderate size A/P Problem List: (1) Incarcerated hernia Assessment and Plan 76 her old gentleman with a previously incarcerated right inguinal hernia that was reduced cardiology has cleared him for surgical intervention He's been nothing by mouth since last night I've called the OR and we are adding him on the schedule later on this afternoon for repair of right inguinal hernia Discussed in detail with the patient and the about surgical intervention they appeared to understand Dwain North MD May 09, 2016 14:02
[2016-05-09] MEDS ORDERED: SODIUM BICARBONATE 8.4% INJ 50 ML ONE (16:03)
[2016-05-09] MEDS ORDERED: BUPIVACAINE/EPINEPHRINE 0.5% 50 ML VIAL ONE (16:03)
[2016-05-09] MEDS ORDERED: BUPIVACAINE/EPINEPHRINE 0.25% PF 10 ML VIAL ONE (16:05)
[2016-05-09] MEDS ORDERED: ACETAMINOPHEN 1000 MG/100 ML VIAL IV ONE (16:20)
[2016-05-09] MEDS ORDERED: HYDROmorphone HCL PF 2 MG/ML VIAL ONE (16:20)
--- NOTE | 2016-05-09 16:48 | HHI.PR ---
Subjective Remarks Patient reports that he is feeling well. Pain is controlled. Awaiting for surgical hernia repair today. He denies nausea or vomiting. He would like Respimat inhaler to be restarted. Objective Vitals Vital Signs Date Time Temp Pulse Resp B/P Pulse Ox O2 Delivery O2 Flow Rate FiO2 05/09/16 12:00 97.5 80 18 109/73 93 05/09/16 10:37 69 05/09/16 08:00 97.0 75 18 104/67 94 05/09/16 04:36 98.1 72 18 114/66 98 05/09/16 03:50 79 05/09/16 00:26 98.4 78 18 98/67 96 05/08/16 20:31 98.4 70 18 110/70 98 I/O 05/08/16 05/08/16 05/08/16 05/09/16 05/09/16 05/09/16 07:00 15:00 23:00 07:00 15:00 23:00 Intake Total 480 ml Balance 480 ml Intake Oral 480 ml # Voids 2 # Bowel Movements 1 Result Diagram: 05/09/16 0659 05/09/16 0659 Imaging Last Impressions Chest X-Ray 05/08/16 1130 Signed Impressions: Service Date/Time: Sunday, May 08, 2016 13:26 - CONCLUSION: Horizontal ill-defined 1-1/2 cm area of linear density in the left lung base indeterminate chronicity. Phu Velasquez MD Objective Remarks GENERAL: This is a well-nourished, well-developed patient, in no apparent distress. CARDIOVASCULAR: Normal rate and regular rhythm without murmurs, gallops, or rubs. RESPIRATORY: Good respiratory efforts. Breath sounds equal and clear to auscultation bilaterally. GASTROINTESTINAL: Abdomen soft, non-tender, non-distended. Normal active bowel sounds : Right groin is markedly distended extending to the scrotum with obvious hernia and bowel sounds. MUSCULOSKELETAL: Extremities without cyanosis, or edema. NEURO: Alert & Oriented x4 to person, place, time, situation. Moves all ext x4 PSYCH: Appropriate mood and affect. A/P Assessment and Plan Pleasant 76-year-old male patient with past medical history which includes AAA status post repair, COPD worse 2 L nasal oxygen via nasal cannula at night, lung cancer status post robotic resection hard of hearing and macular degeneration. Patient was admitted with an incarcerated right inguinal hernia Incarcerated right inguinal hernia: Persistent symptoms. - General surgery following. Plan for hernia repair today. Cardiology was consulted and cleared the patient for surgery. - Keep nothing by mouth. Pain control. COPD:: Not in exacerbation. Resume rest for matter inhaler. Oxygen via nasal cannula to maintain oxygen saturation above 90% Duo nebs as needed Lung cancer status post resection follow-up with Dr. Pradhan as outpatient DVT prophylaxis with SCDs Chad Daugherty MD May 09, 2016 16:48
[2016-05-09] MEDS ORDERED: fentaNYL CITRATE 250 MCG/5 ML AMP ONE (17:12)
[2016-05-09] MEDS ORDERED: SUGAMMADEX SODIUM 200 MG/2 ML VIAL IV PUSH ONE ×2 (17:23)
[2016-05-09] MEDS ORDERED: *RESP: ALBUTEROL 2.5 MG/3 ML NEB (PRN) PERIprocedural Use ONLY NEB ONE (17:44)
--- NOTE | 2016-05-09 17:44 | HHI.PR ---
cc: Gumaro North MD Immediate Post Op Note Procedure Date: May 09, 2016 Pre Op Diagnosis: (1) Incarcerated hernia (2) COPD (chronic obstructive pulmonary disease) (3) Coronary artery disease (4) AAA (abdominal aortic aneurysm) Post Op Diagnosis: (1) Incarcerated hernia (2) COPD (chronic obstructive pulmonary disease) (3) Coronary artery disease (4) AAA (abdominal aortic aneurysm) Surgeon: Gumaro North Elementary Librarian(s): Refer to our record Procedure: Reduction of incarcerated right hernia with repair of retinal hernia with mesh Specimen(s) removed: Hernia sac Estimated blood loss: Minimal Anesthesia: General Drains: None IVF Patient to: PACU Patient Condition: Good Implant/Devices: SEE IMPLANT LOG (if applicable) Date/Time of Procedure: SEE SURGICAL CARE RECORD Gumaro North MD May 09, 2016 17:44
[2016-05-09] MEDS ORDERED: SODIUM CHLORIDE 0.9% FLUSH 5 ML FLUSH IVF PRN (17:45)
[2016-05-09] MEDS ORDERED: DOCUSATE SODIUM 50 MG/SENNA 8.6 MG TAB PO PRN (17:45)
[2016-05-09] MEDS ORDERED: Post-op Orders (for Pharmacy) MISC XX ONE (17:45)
[2016-05-09] MEDS ORDERED: NORC5TAB PO (17:48)
[2016-05-09] MEDS ORDERED: ACETAMINOPHEN/HYDROcodone 325 MG/5 MG TAB PO PRN (18:00)
[2016-05-09] MEDS ORDERED: DO NOT ADM ANY ANTICOAGULANT DRUGS XX PRN (18:15)
--- NOTE | 2016-05-09 20:07 | EKG ---
Date Performed: 05/08/2016 Time Performed: 11:54:30 PTAGE: 76 years EKG: Sinus rhythm LOW QRS VOLTAGE IN EXTREMITY LEADS SEPTAL MYOCARDIAL INFARCTION When compared to previous tracing, s inus rate has decreased. ABNORMAL ECG PREVIOUS TRACING : 08/14/2012 17.28 DOCTOR: Tristan Lester Interpretating Date/Time 05/09/2016 20:07:11
[2016-05-09] MEDS: SODIUM CHLORIDE 0.9% FLUSH 5 ML FLUSH IVF SCH (20:43)
[2016-05-10] VITALS (8 sets, daily range): BP systolic 103–112; BP diastolic 65–73; PULSE 77–134; RESP 18–20; TEMP 96.2–97.9; O2SAT 92–93
[2016-05-10] MEDS ORDERED: TIOTROPIUM BROMIDE 18 MCG INH INH SCH (09:00)
[2016-05-10] MEDS: SODIUM CHLORIDE 0.9% FLUSH 5 ML FLUSH IVF SCH (09:44)
--- NOTE | 2016-05-10 10:35 | HHI.PR ---
Subjective Subjective Notes DAILY PROGRESS NOTE FOR SURGICAL ATTENDING, DR. DWAIN NORTH Feels much better today Irritated by SCDs at bedside Objective Vitals/I&O Vital Signs Date Time Temp Pulse Resp B/P Pulse Ox O2 Delivery O2 Flow Rate FiO2 05/10/16 08:00 97.9 83 18 108/71 93 05/10/16 05:51 2.00 05/09/16 20:45 Nasal Cannula Labs Date/Time Procedure Status Source Growth 05/09/16 16:54 Gram Stain - Final Resulted Wound Other 05/09/16 16:54 Wound Culture Resulted Wound Other Pending Radiology Last Impressions Chest X-Ray 05/08/16 1130 Signed Impressions: Service Date/Time: Sunday, May 08, 2016 13:26 - CONCLUSION: Horizontal ill-defined 1-1/2 cm area of linear density in the left lung base indeterminate chronicity. Phu Velasquez MD Cardiovascular: Regular Lungs: Clear Abdomen: Non-distended, Non-tender Narrative Exam RIGHT inguinal bandage in place----c/d/i A/P Problem List: (1) Incarcerated hernia Assessment and Plan 76 year old male POD1 open RIGHT inguinal hernia repair -Pain controlled -Tolerating regular diet -OOB and mobilized -Went over physical activity restrictions and the use of athletic supporter -GS clear for DC; follow up with Dr. North next week Stacie Harris May 10, 2016 10:35 Dwain North MD May 10, 2016 15:18
--- NOTE | 2016-05-10 12:59 | HHI.DS ---
Discharge Summary Admission Date May 08, 2016 at 12:35 Discharge Date: May 10, 2016 Admitting Diagnosis hernia (1) Incarcerated hernia ICD Code: K46.0 (2) COPD (chronic obstructive pulmonary disease) ICD Code: J44.9 Procedures Right inguinal hernia repair with Dr. North Brief History - From Admission This very pleasant 76-year-old male patient with past medical history which includes AAA status post repair, COPD worse 2 L nasal oxygen via nasal cannula at night, lung cancer status post robotic resection hard of hearing and macular degeneration. Patient reports that he's had a right inguinal hernia for about the past year. Patient did go to the emergency department physician while 04/06 which he required conscious sedation and reduction of hernia. Patient reports he woke up this morning with severe sharp right lower quadrant pain. Pain is associated with nausea. Patient reports he is occasionally able to reduce the hernia himself but was unable to therefore proceeded to his scheduled appointment with Dr. Fernandes at that time he was instructed to come to the emergency department for further evaluation and treatment. On arrival to the emergency department patient was found to have incarcerated right hernia which was partially reduced with conscious sedation by Dr. Weeks. Patient reports the pain has normal way and he feels much better at this time. Dr. Weeks plans to take patient to the operating room for hernia repair first with like cardiac and medical clearance preoperative clearance. Patient denies chest pain shortness of breath fevers or chills. Patient does report he has had intermittent difficulties with constipation for which she's been taking [id number] stool softeners. CBC/BMP: 05/09/16 0659 05/09/16 0659 Significant Findings Laboratory Tests Test 05/08/16 05/08/16 05/09/16 11:40 16:35 06:59 Neutrophils (%) (Auto) 73.3 % (16.0-70.0) Monocytes (%) (Auto) 10.4 % 12.9 % (0.0-8.0) (0.0-8.0) Carbon Dioxide Level 20.7 MEQ/L (21.0-32.0) Estimat Glomerular Filtration 74 ML/MIN (>89) 82 ML/MIN (>89) Rate Random Glucose 159 MG/DL (74-106) Urine Ketones 10 mg/dL (NEG) Urine Mucus FEW /lpf (OCC) Red Blood Count 4.47 MIL/MM3 (4.50-5.90) Monocytes # (Auto) 1.0 TH/MM3 (0-0.9) Calcium Level 8.2 MG/DL (8.5-10.1) Imaging Last Impressions Chest X-Ray 05/08/16 1130 Signed Impressions: Service Date/Time: Sunday, May 08, 2016 13:26 - CONCLUSION: Horizontal ill-defined 1-1/2 cm area of linear density in the left lung base indeterminate chronicity. Phu Velasquez MD PE at Discharge GENERAL: This is a well-nourished, well-developed patient, in no apparent distress. CARDIOVASCULAR: Normal rate and regular rhythm without murmurs, gallops, or rubs. RESPIRATORY: Good respiratory efforts. Breath sounds equal and clear to auscultation bilaterally. GASTROINTESTINAL: Abdomen soft, non-tender, non-distended. Normal active bowel sounds : Right groin is markedly distended extending to the scrotum with obvious hernia and bowel sounds. MUSCULOSKELETAL: Extremities without cyanosis, or edema. NEURO: Alert & Oriented x4 to person, place, time, situation. Moves all ext x4 PSYCH: Appropriate mood and affect. Pt update on day of discharge Patient reports that he is feeling great. Tolerated his diet. Pain is controlled. Cleared by general surgery for discharge. Hospital Course Pleasant 76-year-old male patient with past medical history which includes AAA status post repair, COPD worse 2 L nasal oxygen via nasal cannula at night, lung cancer status post robotic resection hard of hearing and macular degeneration. Patient was admitted with an incarcerated right inguinal hernia. He was evaluated by cardiology and cleared for surgery. Patient underwent hernia repair by Dr. North. The patient did very well postop and is discharged in good condition to follow up outpatient. COPD:: Not in exacerbation. Continue home dose inhalers. Lung cancer status post resection follow-up with Dr. Pradhan as outpatient Pt Condition on Discharge: Good Discharge Disposition: Discharge Home Discharge Time: <= 30 minutes Discharge Instructions Follow up Referrals: Surgical - 05/16/16 with Gumaro North MD New Medications: Hydrocodone-Acetaminophen ([place]) 5-325 mg Tab 1 TAB PO Q6H PRN PAIN #30 Ref 0 TAB Continued Medications: Multiple Vitamin (Multivitamin) 1 Tab Tab 1 TAB PO DAILY [place] (Serenoa Repens) ([place]) 500 Mg Cap 500 MG PO BID Tadalafil (Cialis) 2.5 Mg Tab 0 OR Chad Daugherty MD May 10, 2016 12:59
--- NOTE | 2016-05-10 13:12 | HHI.DCPOC ---
Discharge Care Plan Diagnosis: (1) Incarcerated hernia (2) COPD (chronic obstructive pulmonary disease) Goals to Promote Your Health * To prevent worsening of your condition and complications * To maintain your health at the optimal level Directions to Meet Your Goals Take your medications as prescribed Follow your dietary instruction Follow activity as directed Keep your appointments as scheduled Take your immunizations and boosters as scheduled If your symptoms worsen call your PCP, if no PCP go to Urgent Care Center or Emergency Room Smoking is Dangerous to Your Health. Avoid second hand smoke Call the 24-hour hour crisis hotline for domestic abuse at Chad Daugherty MD May 10, 2016 13:12
--- NOTE | 2016-05-15 07:47 | MP ---
cc: GUMARO NORTH M.D. DATE OF SURGERY: 05/09/2016 PREOPERATIVE DIAGNOSIS Right inguinal hernia, incarcerated. POSTOPERATIVE DIAGNOSIS Right inguinal hernia, incarcerated. PROCEDURE Reduction of right incarcerated inguinal hernia and repair with polypropylene mesh. ANESTHESIA General. SURGEON Dr. North INDICATION This is a pleasant 76-year-old gentleman who had a fairly tender incarcerated hernia. Yesterday it was reduced by Dr. Weeks. He obtained cardiac clearance. He still has a portion of the sac incarcerated which is minimally tender. Plans were made for operative intervention since we had cardiac clearance now. DETAILS OF PROCEDURE The patient was taken to the operating room and placed in supine position. After anesthesia his right groin and abdomen is prepped with Betadine. He was given preoperative antibiotics. A timeout was down. We make a curvilinear incision overlying the internal and external ring, dissect down through Mary's fascia identifying the external oblique aponeurosis which is incised. Cord structures are then surrounded with a Srikanth drain and a large sac is identified. Contents are reduced. There is some milky fluid that is cultured. We then dissect the sac off the cord structures identifying the vas deferens and the blood vessels. The hernia sac is then twisted upon itself, ligated with 0 Ethibond, amputated and passed off the field. We then place a piece of polypropylene mesh securing to the pubic tubercle, Naga's ligament and the iliopubic tract out laterally all done with 0 Ethibond and medially to the conjoined tendon. Tails are fashioned and secured to themselves and to the internal oblique aponeurosis. Once this done we then close the external oblique aponeurosis with 2-0 Vicryl, Mary's with 3-0 Vicryl and skin with 4-0 Vicryl. Steri-Strips are applied. Sterile bandage applied. The patient tolerated the procedure well and had no immediate post-op complications. Gumaro North MD JDB/KAITLYN /5:40 PM /7:28 AM
== END 2016-05-10 14:02 | disposition home or self-care (01) | DRG 352 ==
LOC: NEPE 11:19 → NEDA 12:35 → N05A 19:24
PROVIDERS: ADMIT Family Medicine; ATTEND Family Medicine
PROC: 0YU50JZ Supplement Right Inguinal Region with Synthetic Substitute, Open Approach (ICD-10-PCS; principal; 2016-05-09 16:21)
DX: K40.31 Unilateral inguinal hernia, with obstruction, without gangrene, recurrent (principal); Z99.81 Dependence on supplemental oxygen; J44.9 Chronic obstructive pulmonary disease, unspecified; H91.90 Unspecified hearing loss, unspecified ear; Z87.891 Personal history of nicotine dependence; Z85.118 Personal history of other malignant neoplasm of bronchus and lung; Z90.2 Acquired absence of lung [part of]; Z86.79 Personal history of other diseases of the circulatory system; H35.30 Unspecified macular degeneration
CPT/HCPCS: 49999; 71010; 80048; 81001; 83735; 85025; 85610; 85730; 87070; 87205; 88302; 93005; 94640; 96374; 96375; 99152; C1781; J0131; J0690; J1170; J2370; J2405; J2710; J3010; J7613